=== PATIENT | female | born 1975 | race African-American/Black ===

== ENCOUNTER 2024-08-15 21:38 | Emergency (ER) | payer SELFPAY ==
[~2024-08-15] VITALS: Ht 165.1 cm; Wt 91.0 kg
[2024-08-15 21:44] VITALS: O2SAT 97
[2024-08-15 21:54] VITALS: BP 138/90; PULSE 100; TEMP 98; O2SAT 100
[2024-08-15] MEDS ORDERED: AZIT1PAC9 MT (22:49)
[2024-08-15] MEDS ORDERED: NAPR-1176 MT (22:51)
[2024-08-15] MEDS ORDERED: CYCL10TA21 MT (22:51)
[2024-08-15 23:00] VITALS: RESP 19
[2024-08-15] MEDS: KETOROLAC 30MG/ML VIAL IM ONE (23:00)
[2024-08-15] MEDS: TETANUS, DIPHTHERIA, PERTUSSIS VAC/PF 0.5ML (>10YR OLD) IM ONE (23:00)
== END 2024-08-15 23:30 | disposition home or self-care (01) ==
LOC: ER 21:38
DX: M54.2 Cervicalgia (principal); Z98.890 Other specified postprocedural states
CPT/HCPCS: 81025; 90715; 90471; 96372; 99284; J1885; Z7610